=== PATIENT | male | born 1960 | race American Indian/Alaskan Native ===

== ENCOUNTER 2018-03-27 18:32 | Emergency (ER) | payer OTHER ==
[2018-03-27] MEDS ORDERED: MOTRIN PO ONE (18:55)
[2018-03-27 18:59] VITALS: BP 134/86
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
== END 2018-03-27 19:13 | disposition home or self-care (01) ==
LOC: ED 18:32
DX: M25.511 Pain in right shoulder (principal); M25.512 Pain in left shoulder; I10 Essential (primary) hypertension; E11.9 Type 2 diabetes mellitus without complications; V49.49XA Driver injured in collision with other motor vehicles in traffic accident, initial encounter; Y93.89 Activity, other specified; Y92.89 Other specified places as the place of occurrence of the external cause; Y99.8 Other external cause status